=== PATIENT | female | born 1980 | race Caucasian/White ===

== ENCOUNTER 2016-10-09 05:06 | Emergency (ER) | payer OTHER ==
[2016-10-09] MEDS ORDERED: SODIUM CHLORIDE 0.9% 1,000 ML ONE (05:49)
[2016-10-09] MEDS ORDERED: ONDANSETRON 4 MG VIAL ONE ×2 (06:15→08:13)
[2016-10-09] MEDS ORDERED: SODIUM CHLORIDE 0.9% IV SCH (06:15)
[2016-10-09] MEDS ORDERED: OXYTOCIN IV SCH (06:15)
[2016-10-09] MEDS ORDERED: MORPHINE 4 MG/ML SYR ONE (06:15)
[2016-10-09] MEDS ORDERED: PROMETHAZINE 25 MG/ML VIAL ONE (06:15)
[2016-10-09] MEDS ORDERED: METHYLERGONOVINE MAL 0.2 MG/ML AMP IM ONE (06:20)
[2016-10-09] MEDS ORDERED: MEPERIDINE 25 MG/ML ONE (06:56)
[2016-10-09] MEDS ORDERED: DILAUDID 1 MG/ML AMP ONE (08:13)
== END 2016-10-09 09:06 | disposition home or self-care (01) ==
LOC: ER 05:06
DX: N93.9 Abnormal uterine and vaginal bleeding, unspecified (principal); D62 Acute posthemorrhagic anemia
CPT/HCPCS: 36415; 76830; 80048; 81001; 83735; 84702; 85014; 85018; 85025; 85610; 86850; 86870; 86900; 86901; 96361; 96365; 96372; 96374; 96375; 99285; J1170; J2270; J2405; J2550